=== PATIENT | male | born 1990 | race Caucasian/White ===

== ENCOUNTER 2017-06-16 06:10 | Emergency (ER) | payer OTHER | END 2017-06-16 08:36 | disposition home or self-care (01) | LOC: E/R 06:10 | DX: F10.120 Alcohol abuse with intoxication, uncomplicated (principal); S50.811A Abrasion of right forearm, initial encounter; F17.210 Nicotine dependence, cigarettes, uncomplicated; W26.8XXA Contact with other sharp object(s), not elsewhere classified, initial encounter; Y92.9 Unspecified place or not applicable | CPT/HCPCS: 99282; Z7502 ==

== ENCOUNTER 2017-11-30 13:24 | Emergency (ER) | payer OTHER ==
[2017-11-30] MEDS: IBUPROFEN 600 MG TAB PO (14:02)
== END 2017-11-30 15:22 | disposition home or self-care (01) ==
LOC: FTE 13:24
DX: S96.911A Strain of unspecified muscle and tendon at ankle and foot level, right foot, initial encounter (principal); F17.210 Nicotine dependence, cigarettes, uncomplicated; X50.1XXA Overexertion from prolonged static or awkward postures, initial encounter; Y92.9 Unspecified place or not applicable
CPT/HCPCS: 73610; 73610-RT; 99283-25